=== PATIENT | male | born 1980 | race Asian ===

== ENCOUNTER 2016-07-08 06:21 | Emergency (ER) | payer SELFPAY ==
[~2016-07-08] VITALS: Ht 180.3 cm; Wt 1.1 kg
[~2016-07-08 06:21] MED LIST: ALBU8.5H IH
[2016-07-08] MEDS ORDERED: ALBUTEROL SULFATE 5 MG/ML 20 ML NEB SOLN [BULK] NEB ONE (06:45)
[2016-07-08] MEDS ORDERED: IPRATROPIUM BROMIDE 0.5 MG/2.5 ML NEB SOLUTION NEB ONE (06:45)
[2016-07-08] MEDS ORDERED: 0.9% SODIUM CHLORIDE 5 ML NEB SOLUTION NEB ONE (06:55)
[2016-07-08] MEDS ORDERED: PredniSONE 20 MG TABLET PO ONE (07:15)
[2016-07-08 08:47] VITALS: BP 131/79
== END 2016-07-08 08:50 | disposition home or self-care (01) ==
LOC: EMS 06:22
DX: J45.909 Unspecified asthma, uncomplicated (principal)
CPT/HCPCS: 94644; 99285; J7512; J7611